=== PATIENT | male | born 1955 | race Caucasian/White ===

== ENCOUNTER 2018-04-21 21:17 | Observation (INO) | payer MEDICAID, OTHER ==
[~2018-04-21] VITALS: Ht 175.3 cm; Wt 59.0 kg
[2018-04-21] MEDS ORDERED: SODIUM CHLORIDE 0.9% 1,000 ML IV ONE (22:30)
[2018-04-21 22:31] LABS: Basophils # (auto) 0.1 uL; Basophils % (auto) 0.5 % (0.0-2.0); Eosinophils # (auto) 0 uL; Eosinophils % (auto) 0.2 % (0.0-7.0); Hematocrit 46.3 % (41.0-53.0); Hemoglobin 15.8 g/dL (13.5-17.5); Lymphocytes # (auto) 2.4 uL; Lymphocytes % (auto) 19.5 % (10.0-50.0); Mean Corpuscular Hemoglobin 33.3 pg (28.0-32.0); Mean Corpuscular Hgb Conc. 34.2 g/dL (32.0-36.0); Mean Corpuscular Volume 97.4 fL (80.0-100.0); Monocytes # (auto) 0.6 uL; Neutrophils # (auto) 9.3 uL; Neutrophils % (auto) 74.8 % (37.0-80.0); Platelet Count (auto) 220 10^3/uL (140-450); Red Blood Cells 4.75 10^6/uL (4.5-5.90); Red Cell Distribution Width 13.5 % (11.8-14.3); White Blood Cell 12.4 10^3/uL (4.4-10.8)
[2018-04-21 22:48] LABS: Salicylate 3.5 mg/dL (2.8-20.0)
[2018-04-21 22:49] LABS: Acetaminophen < 2.0 ug/mL (10-30)
[2018-04-21 22:53] LABS: Alanine Aminotransferase 19 U/L (16-61); Albumin 3.9 g/dL (3.4-5.0); Alkaline Phosphatase 75 U/L (45-117); Anion Gap 7 (5-15); Aspartate Aminotransferase 13 U/L (15-37); BUN/Creatinine Ratio 13.6; Bilirubin, Total 0.7 mg/dL (0.2-1.0); Blood Alcohol < 3.0 mg/dL (0-5); Blood Urea Nitrogen 21 mg/dL (7-18); Calcium 9.7 mg/dL (8.5-10.1); Carbon Dioxide 21 mmol/L (21-32); Chloride 112 mmol/L (98-107); GFR African American 59 mL/min; GFR Non-African American 49 mL/min; Glucose 132 mg/dL (74-106); Magnesium 2.6 mg/dL (1.6-2.6); Potassium 3.4 mmol/L (3.5-5.1); Sodium 140 mmol/L (136-145); Total Protein 7.6 g/dL (6.4-8.2)
[2018-04-22 05:02] LABS: Urine Bacteria None Seen /hpf (None Seen)
[2018-04-22 05:54] LABS: Alcohol, Urine < 3.0 mg/dL (0-5); Amphetamine Screen, Urine NEGATIVE (NEGATIVE); Barbiturate Scree,Urine NEGATIVE (NEGATIVE); Benzodiazephine Screen, Urine POSITIVE (NEGATIVE); Cannabinoid Screen, Urine NEGATIVE (NEGATIVE); Cocaine Screen, Urine NEGATIVE (NEGATIVE); Opiate Scree,Urine NEGATIVE (NEGATIVE); Phencyclidine Screen, Urine NEGATIVE (NEGATIVE)
[2018-04-22 06:53] LABS: Urine Specific Gravity 1.015 (1.001-1.035)
[2018-04-22 06:54] LABS: Urine Blood Negative /uL (Negative)
[2018-04-22 06:58] LABS: Urine Hyaline Cast F /lpf (0 - 2); Urine WBC 3 /hpf (0 - 3)
[2018-04-22 12:13] LABS: Albumin 3.5 g/dL (3.4-5.0); BUN/Creatinine Ratio 17.8; Bilirubin, Total 0.6 mg/dL (0.2-1.0); Potassium 3.3 mmol/L (3.5-5.1); Total Protein 7.1 g/dL (6.4-8.2)
[2018-04-22] MEDS ORDERED: POTASSIUM CHL 20 Meq TABLET PO ONE (13:15)
[2018-04-22] MEDS: risperiDONE 1 MG TAB PO SCH (22:00)
[2018-04-22] MEDS ORDERED: risperiDONE 1 MG TAB PO ONE (22:45)
[2018-04-23] MEDS: risperiDONE 1 MG TAB PO SCH (22:22)
[2018-04-24] MEDS: risperiDONE 1 MG TAB PO SCH (22:00)
[2018-04-25] MEDS ORDERED: risperiDONE 1 MG TAB ONE (22:41)
[2018-04-25] MEDS: risperiDONE 1 MG TAB PO SCH (22:43)
[2018-04-26 09:15] VITALS: BP 132/61
== END 2018-04-22 03:21 | disposition home or self-care (01) | DRG 812 ==
LOC: ER 21:17 → OVERFLOW 21:18 → ER 04-26 17:41
PROVIDERS: ADMIT Emergency Medicine; ATTEND Emergency Medicine
DX: T43.222A Poisoning by selective serotonin reuptake inhibitors, intentional self-harm, initial encounter (principal); R45.851 Suicidal ideations; E87.1 Hypo-osmolality and hyponatremia; F32.9 Major depressive disorder, single episode, unspecified; D72.829 Elevated white blood cell count, unspecified; N28.9 Disorder of kidney and ureter, unspecified; F20.9 Schizophrenia, unspecified; F41.9 Anxiety disorder, unspecified; R73.9 Hyperglycemia, unspecified
CPT/HCPCS: 36415; 71045; 80053; 80307; 80320; 80329; 81001; 83735; 85025; 93005; 99285; G0378